=== PATIENT | male | born 1945 | race Caucasian/White ===

== ENCOUNTER 2021-01-12 15:20 | Outpatient (REF) | payer MEDICARE, SELFPAY ==
[2021-01-12 17:17] LABS: Alanine Aminotransferase 78 U/L (0-40); Albumin Level 3.9 g/dL (3.5-5.0); Alkaline Phosphatase 267 U/L (39-117); Aspartate Amino Transferase 45 U/L (5-37); Bilirubin Direct 0.6 mg/dL (0.0-0.5); Bilirubin Total 1.1 mg/dL (0.0-1.0); Blood Urea Nitrogen 22 mg/dL (9-16); Estimated Glomerular Filt Rate > 60; Total Protein 6.8 g/dL (6.5-8.0)
== END 2021-01-12 15:21 | disposition home or self-care (01) ==
LOC: HO.LAB 15:20
PROVIDERS: PCP Pharmacist Pharmacotherapy; Visit Provider Surgery
DX: Z87.19 Personal history of other diseases of the digestive system (principal); Z79.01 Long term (current) use of anticoagulants; Z79.899 Other long term (current) drug therapy
CPT/HCPCS: 36415; 80076; 82565; 84520; 99202

== ENCOUNTER 2021-01-29 10:33 | Outpatient (REF) | payer MEDICARE, SELFPAY ==
--- NOTE | ~2021-01-29 | CT_ITS ---
EXAMINATION: CT ABDOMEN AND PELVIS WITH CONTRAST CLINICAL INFORMATION: Digestive system disorder COMPARISON: None TECHNIQUE: Multidetector volumetric images were obtained from the superior aspect of the liver through the pubic symphysis following administration 85 mL of Omnipaque 350 intravenous contrast. Sagittal and coronal reformatted images were obtained on the technologist's workstation. Oral contrast: No This CT examination was performed using dose optimization techniques as appropriate, variously including the following: *Automated exposure control *Adjustment of mA and/or kV according to patient size (this includes techniques or standardized protocols for targeted exams where dose is matched to indication/reason for exam; i.e. extremities or head) *Use of iterative reconstruction technique DLP: 327 mGy-cm FINDINGS: LUNG BASES: The visualized lung bases are unremarkable. LIVER, GALLBLADDER, AND BILIARY TREE: The liver is normal in size, shape, and attenuation. There is a 1 cm lesion right hepatic lobe segment 7 axial image 18/3. There is mild prominence of intrahepatic ducts. There is a 1.5 cm radiolucent stone in the gallbladder. No wall thickening seen. The CBD is dilated measuring 1.2 cm on axial image 25/3. No radiolucent or radiopaque stones seen in the distal CBD. PANCREAS: Unremarkable. SPLEEN: Unremarkable. ADRENAL GLANDS: Unremarkable. KIDNEYS AND URETERS: The kidneys are normal in size, shape, and attenuation. No hydronephrosis, hydroureter, or calculi seen. No perinephric stranding. A punctate hypodensity seen in both kidney cortices are likely tiny cysts. BLADDER: The bladder is undistended with mild superior and anterior bladder wall thickening measuring 0.7 cm. GASTROINTESTINAL TRACT: There is scattered stool, diverticuli and gas seen throughout the colon. The appendix is normal caliber. The stomach is nondilated. ABDOMINAL WALL: No significant hernia is appreciated. LYMPH NODES: Normal. VASCULAR: There are atherosclerotic calcification changes of aorta without aneurysmal dilatation. PELVIC VISCERA: The prostate gland is minimally enlarged. No evidence of hernia. No abnormal pelvic lymph nodes seen. OSSEOUS STRUCTURES: There are degenerative disc changes with vacuum disc phenomena L5-S1 disc level. CT/CT abdomen pelvis w con IMPRESSION: Colonic diverticulosis with mild constipation. Mild prostatomegaly with mild bladder wall thickening. Radiolucent gallstone. Intrahepatic and extrahepatic ductal dilatation with unknown etiology. A radiolucent stone or lesion in the distal CBD or pancreas is not excluded. Consider MRCP or ERCP.
== END 2021-01-29 10:34 | disposition home or self-care (01) ==
LOC: HO.CT 10:33
PROVIDERS: Visit Provider Surgery
DX: Z87.19 Personal history of other diseases of the digestive system (principal)
CPT/HCPCS: 74177; Q9967

== ENCOUNTER → 2021-02-04 10:57 | Outpatient (BNVA) | payer MEDICARE, SELFPAY | PROVIDERS: Visit Provider Surgery | DX: Z87.19 Personal history of other diseases of the digestive system (principal) | CPT/HCPCS: Q3014 ==

== ENCOUNTER 2021-02-10 08:49 | Outpatient (REF) | payer MEDICARE, SELFPAY ==
--- NOTE | ~2021-02-10 | MR_ITS ---
EXAMINATION: MR ABDOMEN WITHOUT CONTRAST CLINICAL INFORMATION: Gallstones. Dilated bile ducts. COMPARISON: Previous CT of the abdomen and pelvis January 2021. TECHNIQUE: MR abdomen is performed without gadolinium contrast. MRCP sequences were performed. FINDINGS: LUNG BASES: The visualized lung bases are unremarkable. LIVER, GALLBLADDER, AND BILIARY TREE: The liver is normal in size, smooth in contour, and normal in signal. No focal hepatic lesion or biliary ductal dilatation is present. There is a gallstone in the gallbladder. Gallbladder wall is normal in size. No gallbladder wall thickening, edema or pericholecystic fluid is seen. There is mild intrahepatic and extrahepatic bile duct dilatation. The common hepatic duct measures 1.1 cm. The common bile duct tapers gradually in the head of pancreas measuring 0.5 cm. No bile duct stone is seen. PANCREAS: Pancreas is normal in signal. The main pancreatic duct is normal. SPLEEN: Unremarkable. ADRENAL GLANDS: Unremarkable. KIDNEYS AND URETERS: The kidneys are normal in size and shape. No hydronephrosis. No perinephric stranding. GASTROINTESTINAL TRACT: There is mild diverticulosis of the colon. No bowel obstruction. No ascites or fluid collection. ABDOMINAL WALL: No significant hernia is appreciated. LYMPH NODES: No lymphadenopathy. VASCULAR: Unremarkable. OSSEOUS STRUCTURES: Marrow signal normal. There is degenerative disc disease. MR/MR MRCP IMPRESSION: Mild intrahepatic and extrahepatic biliary duct dilatation. No bile duct stone seen. Gallstone.
== END 2021-02-10 08:50 | disposition home or self-care (01) ==
LOC: HO.MRI 08:49
PROVIDERS: Visit Provider Surgery
DX: Z87.19 Personal history of other diseases of the digestive system (principal)
CPT/HCPCS: 74181

== ENCOUNTER → 2021-04-02 14:33 | Outpatient (BNVA) | payer MEDICARE, SELFPAY | PROVIDERS: Visit Provider Surgery | DX: Z87.19 Personal history of other diseases of the digestive system (principal) | CPT/HCPCS: 99212 ==

== ENCOUNTER 2023-01-10 13:20 | Outpatient (REF) | payer MEDICARE, SELFPAY ==
[2023-01-10 15:04] LABS: Blood Urea Nitrogen 22 mg/dL (9-16); Estimated Glomerular Filt Rate > 60
== END 2023-01-10 13:21 | disposition home or self-care (01) ==
LOC: HO.LAB 13:20
PROVIDERS: PCP Internal Medicine; Visit Provider Surgery
DX: K80.20 Calculus of gallbladder without cholecystitis without obstruction (principal); Z87.19 Personal history of other diseases of the digestive system; Z79.899 Other long term (current) drug therapy
CPT/HCPCS: 36415; 82565; 84520; 99212

== ENCOUNTER 2023-01-27 08:27 | Outpatient (REF) | payer MEDICARE, SELFPAY ==
--- NOTE | ~2023-01-27 | CT_ITS ---
EXAMINATION: CT ABDOMEN AND PELVIS WITH CONTRAST CLINICAL INFORMATION: Personal history of other diseases of the digestive system COMPARISON: CT of the abdomen and pelvis January 2021 and MR CP February 2021 TECHNIQUE: Multidetector volumetric images were obtained from the superior aspect of the liver through the pubic symphysis following administration 85 mL of Omnipaque 350 intravenous contrast. Sagittal and coronal reformatted images were obtained on the technologist's workstation. Oral contrast: Yes This CT examination was performed using dose optimization techniques as appropriate, variously including the following: *Automated exposure control *Adjustment of mA and/or kV according to patient size (this includes techniques or standardized protocols for targeted exams where dose is matched to indication/reason for exam; i.e. extremities or head) *Use of iterative reconstruction technique DLP: 3-5 mGy-cm FINDINGS: LUNG BASES: The visualized lung bases are unremarkable. LIVER, GALLBLADDER, AND BILIARY TREE: The liver is normal in size, shape, and attenuation. No focal hepatic lesion. There is mild intra and extrahepatic biliary duct dilatation. The common bile duct measures up to 1.3 cm. The gallbladder has been removed. PANCREAS: Unremarkable. SPLEEN: Unremarkable. ADRENAL GLANDS: Unremarkable. KIDNEYS AND URETERS: The kidneys are normal in size, shape, and attenuation. No hydronephrosis, hydroureter, or calculi seen. No perinephric stranding. Tiny low-attenuation bilateral renal lesions probably representing small cysts. No imaging follow-up recommended. BLADDER: The bladder wall is diffusely thickened. GASTROINTESTINAL TRACT: Diverticulosis of the colon. There is question of inflammatory change of the hepatic flexure with focal wall thickening, increased attenuation in the pericolic colic fat lateral to the hepatic flexure inferior to the right lobe of the liver and some increased soft tissue. This may represent diverticulitis. Neoplastic process cannot be excluded and clinical correlation recommended. This is a new finding from 2020 exam. Large duodenal diverticulum adjacent to the pancreas. Normal stomach. Normal appendix. ABDOMINAL WALL: There are small bilateral inguinal hernias containing fat. LYMPH NODES: Normal. VASCULAR: Atherosclerotic disease. Focal dilatation of the lower abdominal aorta measuring maximum 2.7 cm in transverse dimension axial image 33 series 3. This does not meet criteria for aneurysm. PELVIC VISCERA: Unremarkable. OSSEOUS STRUCTURES: Mild degenerative changes of the spine. CT/CT abdomen pelvis w IV con IMPRESSION: Mild intra and extrahepatic biliary duct dilatation. The common bile duct measures up to 1.3 cm. This may be normal postcholecystectomy. Diverticulosis. Question mild wall thickening of the hepatic flexure and changes of the adjacent pericolic fat. This could represent mild diverticulitis. Neoplastic process cannot be excluded and clinical correlation recommended. Mild diffuse bladder wall thickening. Findings will be communicated by the [facility] work flow hand paster. Fleischner guidelines were followed.
[2023-01-27] MEDS: iohexoL 350 MG/ML 100 ML INFUS..BTL 85 ML IV (09:11)
== END 2023-01-27 08:28 | disposition home or self-care (01) ==
LOC: HO.CT 08:27
PROVIDERS: PCP Internal Medicine; Visit Provider Surgery
DX: K80.20 Calculus of gallbladder without cholecystitis without obstruction (principal); Z87.19 Personal history of other diseases of the digestive system
CPT/HCPCS: 74177; Q9967

== ENCOUNTER → 2023-02-09 11:00 | Outpatient (BNVA) | payer MEDICARE, SELFPAY | PROVIDERS: PCP Internal Medicine; Visit Provider Surgery | DX: Z87.19 Personal history of other diseases of the digestive system (principal) | CPT/HCPCS: 99212 ==

== ENCOUNTER → 2023-04-18 10:58 | Outpatient (BNVA) | payer MEDICARE, SELFPAY | PROVIDERS: PCP Internal Medicine; Visit Provider Surgery | DX: K80.20 Calculus of gallbladder without cholecystitis without obstruction (principal) | CPT/HCPCS: 99212 ==